=== PATIENT | female | born 1985 | race Caucasian/White ===

== ENCOUNTER 2020-06-25 17:02 | Emergency (ER) | payer OTHER, MEDICAID, SELFPAY ==
[2020-06-25 17:08] VITALS: BP 137/106; PULSE 100; RESP 17; TEMP 36.9; O2SAT 100
--- NOTE | 2020-06-25 17:28 | ED.URI ---
HPI - URI/Sore Throat General Chief Complaint: Upper Respiratory Infection Stated Complaint: wants covid test Time Seen by Provider: 06/25/20 17:15 Source: patient Mode of arrival: ambulatory Limitations: no limitations History of Present Illness HPI Narrative: Patient is a 35-year-old female who presents complaining sore throat, fever, body aches, diarrhea, rhinorrhea, cough and mild shortness of breath x1 day. She denies taking [id number] medications for symptom relief. Unknown if any positive COVID exposure. MD elicited complaint: cough, sore throat and rhinorrhea Related Data Home Medications Medication Instructions Recorded Confirmed divalproex PO 06/25/20 hydroxyzine HCl 06/25/20 olanzapine mg 06/25/20 06/25/20 Allergies Allergy/AdvReac Type Severity Reaction Status Date / Time No Known Allergies Allergy Verified 06/25/20 17:10 Review of Systems Review of Systems: Narrative: CONSTITUTIONAL: Reports feverand chills. EYES: Denies visual changes, redness, or discharge. ENT: Reports rhinorrhea and sore throat. CARDIOVASCULAR: Denies chest pain, palpitations, or edema. RESPIRATORY:Reportss cough and dyspnea. GASTROINTESTINAL: Denies abdominal pain, nausea, vomiting, reports diarrhea. GENITOURINARY: Denies dysuria or hematuria. SKIN: Denies rash or itching. MUSCULOSKELETAL: Denies back pain, joint pain, or myalgia. NEUROLOGIC: Denies headache, numbness, dizziness, or weakness. PSYCHIATRIC: Denies anxiety or depression. [facility] Past Medical History Medical History (Updated 06/25/20 @ 18:03 by KUNAL East) Anxiety Depression Gastric ulcer Opiate abuse, continuous Ureteral stone Surgical History Surgical History H/O laparoscopy History of endometrial ablation Family History Family History Other Family history of coronary artery disease Family history of lung cancer Social History Social History (Updated 06/25/20 @ 17:35 by KUNAL East) Smoking status: Current some day smoker Tobacco type: cigarettes Alcohol intake: never Substance use: unknown Gender identity (if verbalized by the patient): Female Exam Narrative: Exam Narrative: GENERAL: Ill appearing but in no acute distress. HEAD: Normocephalic, atraumatic. EYES: EOMI. No redness or drainage. Conjunctiva are normal. ENT: Mucous membranes pink and moist. Nares clear. Positive rhinorrhea. TMs normal bilaterally. Throat mild erythema. Uvula midline. NECK: AROM. Supple. No lymphadenopathy. CHEST: No respiratory distress. Clear to auscultation. HEART: Regular rate and rhythm. No murmur appreciated. Normal peripheral pulses. GI: Soft, nontender without rebound, or guarding. No distention. Bowel sounds normal in all quadrants. EXTREMITIES: Normal range of motion. No edema. SKIN: Warm, dry, no rash. NEURO: No focal deficits. Alert and oriented x3. Gait steady. PSYCH: Normal affect. No signs of depression or anxiety. Course Vital Signs Vital signs: Vital Signs Temperature 36.9 C 06/25/20 17:08 Pulse Rate 100 06/25/20 17:08 Respiratory Rate 17 06/25/20 17:08 Blood Pressure 137/106 H 06/25/20 17:08 Pulse Oximetry 100 06/25/20 17:08 Temperature 36.9 C 06/25/20 17:08 Pulse Rate 100 06/25/20 17:08 Respiratory Rate 17 06/25/20 17:08 Blood Pressure 137/106 H 06/25/20 17:08 Pulse Oximetry 100 06/25/20 17:08 Reviewed. Patient has been instructed to follow-up with her PCP regarding her blood pressure. MDM - URI/Sore Throat MDM Narrative Medical decision making narrative: Patient negative influenza a and B. Patient will likely COVID. COVID testing commpleted in the ED. Patient refused chest xray and states she would just like to go home and rest at this time. Instructions on self isolation given, patient also instructed to get a pulse oximeter and
--- NOTE | 2020-06-25 18:07 | PC.NURSE ---
COVID SWAB SENT TO LAB AT THIS TIME.
--- NOTE | 2020-06-25 18:29 | PC.NURSE ---
PT REFUSING XRAY, DOCUMENT IMAGE TECHNICIAN INFORMED VERBAL ORDER TO CANCEL.
[2020-06-25 18:44] VITALS: BP 134/78; PULSE 89; RESP 22; O2SAT 97
[2020-06-26 12:19] LABS: SARS-CoV-2 RNA PCR Positive
== END 2020-06-25 18:44 | disposition home or self-care (01) ==
PROVIDERS: Emergency Provider Nurse Practitioner
DX: U07.1 COVID-19 (principal); J06.9 Acute upper respiratory infection, unspecified; F41.9 Anxiety disorder, unspecified; F32.9 Major depressive disorder, single episode, unspecified; Z87.442 Personal history of urinary calculi
CPT/HCPCS: 87635; 87804; 99283; C9803; U0003

== ENCOUNTER 2020-08-02 22:02 | Emergency (ER) | payer OTHER, MEDICAID, SELFPAY ==
[2020-08-02] VITALS (10 sets, daily range): BP systolic 100–118; BP diastolic 46–97; PULSE 81–89; RESP 14–20; TEMP 36.9; O2SAT 98–100
--- NOTE | ~2020-08-02 | XR_ITS ---
EXAMINATION: XR chest 2V DATE: 08/02/2020 23:06 INDICATION: Shortness of breath. Heart fluttering. Bilateral feet swelling. TECHNIQUE: PA and lateral views of the chest were obtained. COMPARISON: Chest radiograph dated 12/14/2008 FINDINGS: The lungs remain clear with no focal airspace opacities, pulmonary edema, pleural effusion or pneumot horax. The cardiomediastinal silhouette is normal. Negligible lower thoracic dextrocurvature. IMPRESSION: 1. No acute cardiopulmonary disease. Reviewed, dictated and finalized at location A. LE AIR VALVE TESTER
--- NOTE | 2020-08-02 22:08 | ED.GENADULT ---
HPI - General Adult General Chief complaint: Unspecified Stated complaint: feet, ankle, and calf swelling Time Seen by Provider: 08/02/20 22:08 Source: patient Mode of arrival: ambulatory Limitations: no limitations History of Present Illness HPI narrative: Patient is a 35-year-old with a history of bipolar disorder, depression and anxiety who presents for evaluation of bilateral lower leg swelling and pain. Patient reports she has had increased leg swelling and pain over the past week. She states she had was diagnosed with Covid over a month ago, also reporting some shortness of breath without chest pain. Patient states she is very stressed, patient is very tearful and emotional throughout the interview. She is constantly. From symptom to symptom, stating she feels as if something is seriously wrong with her. No recent travel. No redness or rashes. Patient reports dull, aching pain in the bilateral lower legs. Patient states she has a hysterectomy, is not on any control. Related Data Home Medications Medication Instructions Recorded Confirmed divalproex PO 06/25/20 hydroxyzine HCl 06/25/20 olanzapine mg 06/25/20 06/25/20 Allergies Allergy/AdvReac Type Severity Reaction Status Date / Time No Known Allergies Allergy Verified 08/02/20 22:05 Review of Systems Review of Systems: Narrative: CONSTITUTIONAL: Denies fever, chills, or sweats. EYES: Denies visual changes, redness, or discharge. ENT: Denies rhinorrhea, congestion, sore throat, or otalgia. CARDIOVASCULAR: Denies chest pain, palpitations, reports lower leg swelling RESPIRATORY: Denies cough, reports shortness of breath. GASTROINTESTINAL: Denies abdominal pain, nausea, vomiting, or diarrhea. GENITOURINARY: Denies dysuria or hematuria. SKIN: Denies rash or itching. MUSCULOSKELETAL: Denies back pain, joint pain, or myalgia. NEUROLOGIC: Denies headache, numbness, or weakness. PSYCHIATRIC: Reports anxiety, depression and bipolar disorder PMFSH Past Medical History Medical History Anxiety Depression Gastric ulcer Opiate abuse, continuous Ureteral stone Surgical History Surgical History H/O laparoscopy History of endometrial ablation Family History Family History Other Family history of coronary artery disease Family history of lung cancer Social History Social History Smoking status: Current some day smoker Tobacco type: cigarettes Alcohol intake: never Substance use: unknown Gender identity (if verbalized by the patient): Female Exam Narrative: Exam Narrative: GENERAL: Awake, alert, anxious, tearful HEAD: Normocephalic, atraumatic. EYES: PERRLA and EOMI. ENT: Nares clear, no rhinorrhea or epistaxis. Mucous membranes moist. NECK: Supple. CHEST: No respiratory distress, breathing even and non labored HEART: Regular rate, sinus rhythm ABDOMEN:Non distended, non tender EXTREMITIES: Normal range of motion. No leg edema. Bilateral calf tenderness on exam. No masses palpated. Compartments are soft. Distal pulses 2+, sensation intact. SKIN: Warm, dry, no rash. NEURO:No focal deficits. Alert and oriented x3 Course Vital Signs Vital signs: Vital Signs Temperature 36.9 C 08/02/20 22:03 Pulse Rate 89 08/02/20 22:03 Respiratory Rate 18 08/02/20 22:03 Blood Pressure 118/46 L 08/02/20 22:03 Pulse Oximetry 100 08/02/20 22:03 Temperature 36.9 C 08/02/20 22:07 Pulse Rate 83 08/02/20 23:30 Respiratory Rate 19 08/02/20 23:30 Blood Pressure 100/86 08/02/20 23:01 Pulse Oximetry 100 08/02/20 23:30 Medical Decision Making MDM Narrative Medical decision making narrative: On exam, I do not really appreciate any edema. There is certainly no pitting edema. No unilateral edema, red
--- NOTE | 2020-08-02 22:31 | ECG_ITS ---
Measurements Intervals [place] Rate: 75 P: 46 OR: 148 QRS: 36 QRSD: 94 T: 21 QT: 400 QTc: 449 Interpretive Statements SINUS RHYTHM NORMAL ECG Electronically Signed On 08-03-2020 8:45:23 CAMPAIGN ASSISTANT by Xavier Jeffery D.O.
[2020-08-02] MEDS: LORazepam (*CRX) 0.5 MG TABLET PO (22:49)
[2020-08-02 22:55] LABS: Basophils Absolute Auto 0.1 K/mm3 (0.0-0.1); Basophils Percent Auto 1.3 % (0.2-1.2); Eosinophils Absolute Auto 0.7 K/mm3 (0-0.3); Hematocrit 38.7 % (37.0-47.0); Hemoglobin 12.5 g/dL (12.0-15.0); Immature Granulocyte Absolute 0.08 K/mm3 (0.00-0.031); Lymphocytes Absolute Auto 2.72 K/mm3 (0.9-3.2); Lymphocytes Percent Auto 32.5 % (18.3-44.2); Mean Corpuscular HGB Conc 32.3 g/dl (32-36); Mean Corpuscular Hemoglobin 28.9 pg (26-34); Mean Corpuscular Volume 89.4 fl (80-100); Mean Platelet Volume 10.5 fl (7.4-10.4); Monocytes Absolute Auto 0.6 K/mm3 (0.1-0.6); Monocytes Percent Auto 7.3 % (2.6-8.5); Neutrophils Absolute Auto 4.2 K/mm3 (1.3-6.7); Neutrophils Percent Auto 49.9 % (45.5-73.1); Platelet Count Result 209 k/mm3 (150-375); Red Blood Count 4.33 M/mm3 (4.2-5.4); Red Cell Distribution Width 14.6 % (11.5-14.5); White Blood Count 8.4 K/mm3 (4.5-10.0)
[2020-08-02 23:05] LABS: Alanine Aminotransferase 29 U/L (4-35); Albumin Level 4.2 g/dL (3.5-5.1); Alkaline Phosphatase 60 U/L (38-126); Anion Gap 8 mmol/L (8-16); Aspartate Amino Transferase 30 U/L (14-36); Bilirubin,Total 0.3 mg/dL (0.2-1.3); Blood Urea Nitrogen 24 mg/dL (7-17); Calcium 8.8 mg/dL (8.4-10.2); Carbon Dioxide 31 mmol/L (22-30); Chloride 101 mmol/L (98-107); Estimated CRCL calculation 85 ml/min; Estimated Glomerular Filt Rate > 60; Glucose 84 mg/dL (65-105); Potassium 4.2 mmol/L (3.4-5.0); Sodium 140 mmol/L (137-145)
[2020-08-02 23:08] LABS: D Dimer 0.27 ug/mL (<0.48)
[2020-08-02 23:14] LABS: NT Pro B Type Natriuretic Pept 93 PG/ML (5-100)
--- NOTE | 2020-08-02 23:41 | PC.NURSE ---
pt resting on stretcher, playing on her phone. pt states ativan did help. RN informed that she is awaiting results and once received the md should be back in.
[2020-08-03 00:03] VITALS: BP 115/58; PULSE 89; RESP 18; TEMP 36.4; O2SAT 100
== END 2020-08-03 00:04 | disposition home or self-care (01) ==
PROVIDERS: Emergency Provider Emergency Medicine
DX: F41.9 Anxiety disorder, unspecified (principal); M79.89 Other specified soft tissue disorders; F31.9 Bipolar disorder, unspecified; F17.210 Nicotine dependence, cigarettes, uncomplicated; Z86.19 Personal history of other infectious and parasitic diseases
CPT/HCPCS: 36415; 71046; 80053; 83880; 85025; 85380; 93005; 99283; A9270

== ENCOUNTER 2020-08-03 12:11 | Outpatient (CLI) | payer MEDICAID, SELFPAY ==
--- NOTE | ~2020-08-03 | US_ITS ---
EXAMINATION: US venous doppler [facility] DATE: 08/03/2020 12:54 INDICATION: Lower limb swelling. TECHNIQUE: Grayscale ultrasound images without and with compression and Doppler ultrasound images of the bilateral lower extremity veins were obtained. COMPARISON: Ultrasound 05/12/2016 FINDINGS: The visualized portions of right common femoral vein, profunda (deep) femoral vein, femoral vein, pop liteal vein, peroneal veins, posterior tibial veins, and greater saphenous vein outflow are patent. The visualized portions of left common femoral vein, profunda femoral vein, femoral vein, popliteal v ein, peroneal veins, posterior tibial veins, and greater saphenous vein outflow are patent. IMPRESSION: 1. No deep venous thrombosis. Reviewed, dictated and finalized at location B. ICAL DRESSING MAKER
== END 2020-08-03 12:12 | disposition home or self-care (01) ==
LOC: ANHIMG 12:17
PROVIDERS: PCP Internal Medicine; Visit Provider Internal Medicine
DX: M79.89 Other specified soft tissue disorders (principal)
CPT/HCPCS: 93970

== ENCOUNTER 2020-08-18 19:14 | Emergency (ER) | payer MEDICAID, SELFPAY ==
[2020-08-18 19:34] VITALS: BP 135/74; PULSE 89; RESP 20; TEMP 36.9; O2SAT 99
[2020-08-18 19:50] VITALS: BP 141/88; PULSE 82; RESP 19; O2SAT 99
--- NOTE | 2020-08-18 20:28 | ED.EXTPRO ---
HPI - Extremity Problem General Chief complaint: Extremity Problem,Nontraumatic Stated complaint: swelling-arms, legs, face-difficulty breathing Time Seen by Provider: 08/18/20 20:09 History of Present Illness HPI Narrative: Bilateral foot and ankle edema for a few weeks. Associated with pain in the feet and dyspnea. Seen here and by her PCP recently for the same, and has a follow-up appointment tomorrow. She has had negative dopplers and was prescribed compression stocking. Related Data Home Medications Medication Instructions Recorded Confirmed divalproex 500 mg PO BID 06/25/20 hydroxyzine HCl 50 mg PO TID PRN 06/25/20 olanzapine 10 mg PO HS 06/25/20 06/25/20 Allergies Allergy/AdvReac Type Severity Reaction Status Date / Time No Known Allergies Allergy Verified 08/18/20 20:55 Review of Systems Review of Systems: All systems reviewed & are unremarkable except as noted in HPI and below Constitutional: Constitutional: Denies chills and Denies fever(s) Cardiovascular: Cardiovascular: Denies chest pain Respiratory: Respiratory: Reports dyspnea PMFSH Past Medical History Medical History Anxiety Depression Gastric ulcer Opiate abuse, continuous Ureteral stone Surgical History Surgical History H/O laparoscopy History of endometrial ablation Family History Family History Other Family history of coronary artery disease Family history of lung cancer Social History Social History Smoking status: Current some day smoker Tobacco type: cigarettes Alcohol intake: never Substance use: unknown Gender identity (if verbalized by the patient): Female Exam Const: General: no acute distress and alert Orientation/consciousness: patient oriented x3 HENMT: Head: normal to inspection Neck: Neck: normal visual inspection Resp: Effort & Inspection: normal respiratory effort Auscultation: clear to auscultation bilaterally Cardio: Rate: regular rate Rhythm: regular rhythm GI: GI Palp: Yes Soft to palpation and No Tenderness to palpation present (GI) Skin: General skin exam: normal color Neuro: General: patient oriented x3 and moves all extremities Speech: normal speech Gait exam (Neuro): Normal gait present Extrem: General: edema (1+ bilateral ankle edema) Psych: Affect: Anxious affect present Course Vital Signs Vital signs: Vital Signs Temperature 36.9 C 08/18/20 19:34 Pulse Rate 89 08/18/20 19:34 Respiratory Rate 20 08/18/20 19:34 Blood Pressure 135/74 08/18/20 19:34 Pulse Oximetry 99 08/18/20 19:34 Temperature 36.9 C 08/18/20 19:34 Pulse Rate 80 08/18/20 20:45 Respiratory Rate 15 08/18/20 20:45 Blood Pressure 138/85 08/18/20 20:45 Pulse Oximetry 97 08/18/20 20:45 MDM - Extremity (Nontraumatic) MDM Narrative Medical decision making narrative: She does have moderate edema. Normal kidney function. I will provide for a short course of diuresis. Discharge Plan Discharge Clinical Impression: Dependent edema Patient Disposition: Home, Self-Care Condition: Stable Instructions: Leg Edema (ED) Prescriptions: New furosemide [Lasix] 20 mg tablet 20 mg PO DAILY Qty: 7 RF: 0 No Action olanzapine 10 mg tablet 10 mg PO HS RF: 0 hydroxyzine HCl 50 mg tablet 50 mg PO TID PRN (Reason: Anxiety) RF: 0 divalproex 500 mg tablet,delayed release (DR/EC) 500 mg PO BID RF: 0 Follow-up/Referrals: Seb Ugarte MD [Primary Care Provider] -
[2020-08-18 20:45] VITALS: BP 138/85; PULSE 80; RESP 15; O2SAT 97
[2020-08-18] MEDS: FUROSEMIDE 20 MG TABLET PO (20:53)
== END 2020-08-18 21:10 | disposition home or self-care (01) ==
PROVIDERS: Emergency Provider Emergency Medicine; PCP Internal Medicine
DX: R60.9 Edema, unspecified (principal); F41.9 Anxiety disorder, unspecified; F32.9 Major depressive disorder, single episode, unspecified; F17.210 Nicotine dependence, cigarettes, uncomplicated
CPT/HCPCS: 99283; A9270

== ENCOUNTER 2020-09-03 13:56 | Outpatient (CLI) | payer BC, SELFPAY ==
--- NOTE | 2020-09-03 | ECHO_ITS ---
Patient Info Name: Lizzeth Terrazas Age: 35 years : 1985 Gender: Female Ht: 67 in Wt: 180 lbs BSA: 1.98 m2 HR: 88 bpm BP: 143 / 79 mmHg Heart Rhythm: Sinus Rhythm Technical Quality: Good Exam Date: 09/03/2020 2:27 PM Exam Location: [facility] Patient Status: Outpatient Admit Date: 09/03/2020 Staff Ordering Physician: Seb Ugarte MD Welder Experimental: Martita Ellis RDCS Attending Provider: Seb Ugarte MD Referring Physician: Torito THOMPSON; Exam Type: CA echo doppler color flow Study Info Indications R60.9 - Edema, unspecified Complete two-dimensional, color flow and Doppler transthoracic echocardiogram is performed. Summary 1. Complete two-dimensional, color flow and Doppler transthoracic echocardiogram is performed. 2. Left ventricular chamber dimension is normal. 3. Left ventricular systolic function is normal, estimated at 65-70%. 4. The left ventricular diastolic function is normal. 5. E/e' 8 is minimally elevated. 6. Global longitudinal strain is normal at -27.1%. 7. There is trace tricuspid valve regurgitation. 8. Mild pulmonary hypertension, estimated pulmonary arterial systolic pressure is 47 mmHg. 9. Dilated inferior vena cava with <50% collapse upon inspiration consistent with significantly elevated right atrial pressure, 15 mmHg. Left Ventricle E/e' 8 is minimally elevated. Global longitudinal strain is normal at -27.1%. Left ventricular chamber dimension is normal. Left ventricular systolic function is normal, estimated at 65-70%. The left ventricular diastolic function is normal. Right Ventricle Right ventricular chamber dimension is normal. Right ventricular systolic function is normal. Left Atria Left atrial chamber dimension is normal. Right Atria Right atrial chamber dimension is normal. Aortic Valve The aortic valve is trileaflet. There is no aortic valve stenosis. There is no aortic valve regurgitation. Pulmonic Valve There is no pulmonic regurgitation. Mitral Valve There is no mitral valve stenosis. There is no mitral valve regurgitation. Tricuspid Valve There is trace tricuspid valve regurgitation. Mild pulmonary hypertension, estimated pulmonary arterial systolic pressure is 47 mmHg. Pericardium/Pleural There is no pericardial effusion. Inferior Vena Cava Dilated inferior vena cava with <50% collapse upon inspiration consistent with significantly elevated right atrial pressure, 15 mmHg. Aorta The aortic root size at the sinus of Valsalva is normal. Left Ventricular Outflow Tract Name Value Normal LVOT 2D LVOT Diameter 2.0 cm LVOT Doppler LVOT Peak Gradient 8 mmHg LVOT Mean Gradient 4 mmHg LVOT VTI 30 cm LVOT VTI/AV VTI Ratio 1.0 LVOT Stroke Volume 89 ml LVOT CO 8.0 l/min LVOT CI 4.0 l/min/m2 Mitral Valve Name
== END 2020-09-03 13:57 | disposition home or self-care (01) ==
PROVIDERS: PCP Internal Medicine; Visit Provider Internal Medicine
DX: M79.89 Other specified soft tissue disorders (principal); I27.0 Primary pulmonary hypertension
CPT/HCPCS: 93306

== ENCOUNTER 2020-09-05 08:45 | Outpatient (CLI) | payer BC, SELFPAY ==
--- NOTE | ~2020-09-05 | XR_ITS ---
EXAMINATION: XR chest 2V DATE: 09/05/2020 09:16 INDICATION: Lower limb swelling TECHNIQUE: Frontal and lateral views of the chest are obtained COMPARISON: 08/02/2020 FINDINGS: The lungs are free of acute opacities. There is no pleural effusion or pneumothorax. The ca rdiomediastinal silhouette is normal. The visualized bones and soft tissues are unremarkable. IMPRESSION: 1. No acute cardiopulmonary abnormality. Reviewed, dictated and finalized at location A. Y EQUIPMENT OPERATOR
== END 2020-09-05 08:46 | disposition home or self-care (01) ==
LOC: ANHIMG 08:55
PROVIDERS: PCP Internal Medicine; Visit Provider Nurse Practitioner
DX: M79.89 Other specified soft tissue disorders (principal)
CPT/HCPCS: 71046

== ENCOUNTER 2020-09-29 22:44 | Emergency (ER) | payer BC, SELFPAY ==
[2020-09-29 22:46] VITALS: BP 130/101; PULSE 101; RESP 16; TEMP 36.3; O2SAT 100
--- NOTE | 2020-09-29 23:14 | ED.GENADULT ---
HPI - General Adult General Chief complaint: Unspecified Stated complaint: feet swelling, SI Time Seen by Provider: 09/29/20 22:54 Source: patient Mode of arrival: ambulatory Limitations: no limitations History of Present Illness HPI narrative: Patient is a 34-year-old female complaining of bilateral lower extremity edema which she states started approximately 1 month ago when she was taken off her water pill. Patient states that she was on Depakote which was causing her lower extremity to swell up was taken off of it a month ago along with a water pill but the past 2 weeks she is noticing the swelling of her bilateral lower extremity. Patient states that she had an argument with her mother and that is why she said I wish I was but states that she said jest and did not mean that she was just mad at her mother at that time. Patient adamantly denies having suicidal or homicidal thoughts. Patient denies any thoughts of hurting herself, why would I want to do that I have 2 kids that stupid . Again when asked patient is very adamant that she has no thoughts of hurting herself or anyone else. Related Data Home Medications Medication Instructions Recorded Confirmed hydroxyzine HCl 50 mg PO TID PRN 06/25/20 olanzapine 10 mg PO HS 06/25/20 06/25/20 fluoxetine mg 09/29/20 09/29/20 topiramate 09/29/20 Allergies Allergy/AdvReac Type Severity Reaction Status Date / Time divalproex sodium Allergy Unknown Verified 09/29/20 22:54 [From Depakote] Review of Systems Review of Systems: All systems reviewed & are unremarkable except as noted in HPI and below Constitutional: Constitutional: Denies body ache(s), Denies chills, Denies excessive sweating, Denies fatigue, Denies fever(s), Denies headache(s), Denies lethargy, Denies malaise, Denies weakness and Denies weight loss Eyes: Eyes: Denies blurry vision, Denies change in vision and Denies loss of vision ENT: Denies dizziness, Denies ear discharge, Denies headache(s), Denies lip swelling, Denies epistaxis, Denies nasal congestion, Denies neck pain, Denies throat swelling and Denies tongue swelling Cardiovascular: Cardiovascular: Denies chest pain, Denies chest pain at rest, Denies chest pain with activity, Denies diaphoresis, Denies rapid heart rate, Denies edema, Denies irregular heart rhythm, Denies lightheadedness, Denies palpitations, Denies dyspnea and Denies dyspnea on exertion Respiratory: Respiratory: Denies chest congestion, Denies cough, Denies hemoptysis, Denies dyspnea and Denies dyspnea on exertion Gastrointestinal: Gastrointestinal: Denies abdominal pain, Denies melena, Denies hematochezia, Denies diarrhea, Denies nausea, Denies vomiting and Denies hematemesis Musculoskeletal: Musculoskeletal: Denies abnormal gait, Denies deformity, Denies joint swelling, Denies limited range of motion, Denies neck pain and Denies numbness Neurologic: Denies Abnormal speech present, Denies abnormal gait, Denies confusion, Denies dizziness, Denies headache(s), Denies focal weakness, Denies loss of vision, Denies numbness, Denies Other visual disturbances, Denies Sensory deficit (Neuro) and Denies weakness Psychiatric: Psychiatric: Denies confusion, Denies depression, Denies auditory hallucinations, Denies homicidal ideation and Denies suicidal ideation Endocrine: Endocrine: Denies cold intolerance, Denies excessive sweating, Denies fatigue, Denies heat intolerance and Denies palpitations Hematologic/Lymphatic: Hematologic/Lymphatic: Denies easy bleeding and Denies easy bruising Allergic/Immunologic: Allergic/Immunologic: Denies lip swelling, Denies throat swelling and Denies tongue swelling PMFSH Past Medical History Medical History Anxiety Depression Gastric ulcer Opiate abuse, continuous Ureteral stone Surgical History Surgical History H/O laparoscopy History o
[2020-09-29 23:24] VITALS: RESP 18
[2020-09-29 23:43] LABS: Basophils Absolute Auto 0.1 K/mm3 (0.0-0.1); Basophils Percent Auto 1.1 % (0.2-1.2); Eosinophils Absolute Auto 0.5 K/mm3 (0-0.3); Eosinophils Percent Auto 6.8 % (0-4.4); Hematocrit 37.5 % (37.0-47.0); Hemoglobin 12.2 g/dL (12.0-15.0); Immature Granulocyte Absolute 0.02 K/mm3 (0.00-0.031); Immature Granulocyte Percent A 0.3 % (0-0.5); Lymphocytes Percent Auto 38.7 % (18.3-44.2); Mean Corpuscular HGB Conc 32.5 g/dl (32-36); Mean Corpuscular Hemoglobin 28.3 pg (26-34); Mean Platelet Volume 10.6 fl (7.4-10.4); Monocytes Absolute Auto 0.6 K/mm3 (0.1-0.6); Monocytes Percent Auto 8.5 % (2.6-8.5); Neutrophils Absolute Auto 3.4 K/mm3 (1.3-6.7); Neutrophils Percent Auto 44.6 % (45.5-73.1); Platelet Count Result 240 k/mm3 (150-375); Red Blood Count 4.31 M/mm3 (4.2-5.4); Red Cell Distribution Width 14.2 % (11.5-14.5); White Blood Count 7.5 K/mm3 (4.5-10.0)
[2020-09-29 23:52] LABS: Acetaminophen < 10 ug/mL (10-30); Salicylate 8.4 mg/dL (2-20)
[2020-09-29 23:58] LABS: Alanine Aminotransferase 21 U/L (4-35); Albumin Level 3.8 g/dL (3.5-5.1); Alkaline Phosphatase 72 U/L (38-126); Anion Gap 4 mmol/L (8-16); Aspartate Amino Transferase 35 U/L (14-36); Bilirubin,Total 0.2 mg/dL (0.2-1.3); Blood Urea Nitrogen 15 mg/dL (7-17); Calcium 8.7 mg/dL (8.4-10.2); Carbon Dioxide 27 mmol/L (22-30); Chloride 107 mmol/L (98-107); Estimated CRCL calculation 88 ml/min; Estimated Glomerular Filt Rate > 60; Glucose 101 mg/dL (65-105); Potassium 3.7 mmol/L (3.4-5.0); Sodium 138 mmol/L (137-145)
[2020-09-30 00:07] LABS: Barbiturate Screen Urine Negative (Negative); Benzodiazepines Screen Urine Positive (Negative); Cannabinoid Screen Urine Positive (Negative); Cocaine Screen Urine Negative (Negative); Methadone Screen Urine Negative (Negative); Opiate Screen Urine Negative (Negative); Phencyclidine Screen Urine Negative (Negative)
[2020-09-30 00:10] LABS: Ethanol < 10 mg/dL (<10)
[2020-09-30 00:22] LABS: Amphetamine Screen Urine Positive (Negative)
[2020-09-30 00:28] LABS: Thyroid Stimulating Hormone 0.492 uIU/mL (0.465-4.680)
[2020-09-30 02:50] VITALS: BP 129/83; PULSE 84; RESP 18; O2SAT 97
== END 2020-09-30 02:50 | disposition home or self-care (01) ==
PROVIDERS: Emergency Provider Emergency Medicine; PCP Internal Medicine
DX: F43.25 Adjustment disorder with mixed disturbance of emotions and conduct (principal); F41.9 Anxiety disorder, unspecified; F32.9 Major depressive disorder, single episode, unspecified
CPT/HCPCS: 36415; 80053; 80307; 84443; 85025; 99284

== ENCOUNTER 2021-04-11 13:29 | Emergency (ER) | payer BC, SELFPAY ==
--- NOTE | ~2021-04-11 | XR_ITS ---
EXAMINATION: XR ankle LT min 3V DATE: 04/11/2021 13:56 INDICATION: Left ankle pain TECHNIQUE: Anteroposterior, lateral, mortise, and additional oblique view of the ankle were obtained. COMPARISON: None. FINDINGS: There is soft tissue swelling of ankle. Bone alignment is normal. No fracture is identified . IMPRESSION: 1. Soft tissue swelling without acute osseous findings Reviewed, dictated and finalized at location A.
--- NOTE | ~2021-04-11 | XR_ITS ---
EXAMINATION: XR foot RT min 3V DATE: 04/11/2021 13:56 INDICATION: Right foot pain TECHNIQUE: Dorsoplantar, lateral, and 2 oblique views of the right foot were obtained. COMPARISON: 07/09/2011 FINDINGS: There is no fracture, dislocation, or subluxation. The bones, soft tissues, and joint space s are normal. IMPRESSION: 1. No acute osseous abnormality. Reviewed, dictated and finalized at location A.
[2021-04-11 13:30] VITALS: BP 115/66; PULSE 77; RESP 20; TEMP 36.8; O2SAT 99
--- NOTE | 2021-04-11 14:33 | ED.GENADULT ---
HPI - General Adult General Chief complaint: Extremity Injury, Lower Stated complaint: something wrong with my feet Time Seen by Provider: 04/11/21 13:44 Source: patient and RN notes reviewed Mode of arrival: ambulatory Limitations: no limitations History of Present Illness HPI narrative: Patient is a 36-year-old female who presents with bilateral foot pain patient has a history of lower extremity edema patient on arrival to emergency department is in the room in no distress notes that in the last week she stepped on a rock and injured the right midfoot is continued to have some mild aching pain patient on arrival does not appear distressed she also notes she continues to have mild ankle pain to the left side medial aspect history of rolling the ankle patient denies other injuries or complaints 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 which has made it difficult for her is followed by primary care for this on arrival does not appear distressed Related Data Home Medications Medication Instructions Recorded Confirmed hydroxyzine HCl 50 mg PO TID PRN 06/25/20 olanzapine 10 mg PO HS 06/25/20 06/25/20 fluoxetine mg 09/29/20 09/29/20 topiramate 09/29/20 Allergies Allergy/AdvReac Type Severity Reaction Status Date / Time divalproex sodium Allergy Unknown Verified 09/29/20 22:54 [From Depakote] Review of Systems Review of Systems: All systems reviewed & are unremarkable except as noted in HPI and below PMFSH Past Medical History Medical History Anxiety Depression Gastric ulcer Opiate abuse, continuous Ureteral stone Surgical History Surgical History H/O laparoscopy History of endometrial ablation Family History Family History Other Family history of coronary artery disease Family history of lung cancer Social History Social History Smoking status: Current some day smoker Tobacco type: cigarettes Alcohol intake: never Substance use: unknown Gender identity (if verbalized by the patient): Female Exam Narrative: Exam Narrative: GENERAL: Well-appearing, well-nourished, and in no acute distress. HEAD: Normocephalic, atraumatic. EYES: PERRLA and EOMI. ENT: Nares clear, no rhinorrhea or epistaxis. Mucous membranes moist. CHEST: Clear to auscultation. No respiratory distress. No wheezes rales or rhonchi HEART: Regular rate and rhythm. No murmur heard. EXTREMITIES: Normal range of motion. No edema. Tenderness of the medial aspect of the left ankle no deformity remainder of extremity nontender. Tender some of the dorsum of the right midfoot no deformity noted SKIN: Warm, dry, no rash. NEURO: No focal deficits. Alert and oriented x3. Neurovascularly intact. Capillary refill less than 2 seconds PSYCH: Normal mood and affect. Course Course Emergency Course: Patient evaluated the emergency department no distress will be discharged with podiatry follow-up and primary care felt appropriate for outpatient reevaluation patient is agreeing with this plan she is afebrile nontoxic-appearing no distress provided with reasons to return is felt appropriate for outpatient reevaluation Vital Signs Vital signs: Vital Signs Temperature 98.2 F 04/11/21 13:30 Pulse Rate 77 04/11/21 13:30 Respiratory Rate 20 04/11/21 13:30 Blood Pressure 115/66 04/11/21 13:30 Pulse Oximetry 99 04/11/21 13:30 Temperature 98.2 F 04/11/21 13:30 Pulse Rate 77 04/11/21 13:30 Respiratory Rate 20 04/11/21 13:30 Blood Pressure 115/66 04/11/21 13:30 Pulse Oximetry 99 04/11/21 13:30 Medical Decision Making MDM Narrative Medical decision making narrative: Patients injury or pain is consistent with musculoskeletal etiology. No signs of neurological or vascular compromise on exam
[2021-04-11 15:07] VITALS: BP 136/90; PULSE 74; RESP 16; O2SAT 98
== END 2021-04-11 15:10 | disposition home or self-care (01) ==
PROVIDERS: Emergency Provider Emergency Medicine; PCP Internal Medicine
DX: S93.409A Sprain of unspecified ligament of unspecified ankle, initial encounter (principal); S96.919A Strain of unspecified muscle and tendon at ankle and foot level, unspecified foot, initial encounter; M79.671 Pain in right foot; F41.9 Anxiety disorder, unspecified; F32.9 Major depressive disorder, single episode, unspecified; Z87.442 Personal history of urinary calculi; F17.210 Nicotine dependence, cigarettes, uncomplicated; X50.9XXA Other and unspecified overexertion or strenuous movements or postures, initial encounter
CPT/HCPCS: 73610; 73630; 99284

== ENCOUNTER 2022-02-24 08:45 | Emergency (ER) | payer BC, SELFPAY ==
[2022-02-24 08:52] VITALS: BP 133/78; PULSE 81; RESP 18; TEMP 36.4; O2SAT 100
[2022-02-24 09:05] VITALS: RESP 20
--- NOTE | 2022-02-24 09:09 | ED.GENADULT ---
HPI - General Adult General Chief complaint: Unspecified Stated complaint: twitching after ingesting an edible Time Seen by Provider: 02/24/22 08:52 History of Present Illness HPI narrative: 36-year-old female with a history of bipolar presents to the emergency room via EMS stating her mother requested an evaluation for high heart rate. Patient states that she has been experiencing intermittent tachycardia for 3 to 4 months, and has made her psychiatrist aware and was told to just monitor her . Patient states that she has not been taking her Zyprexa for 2 months, and is also been taking gas station kratom for the length of time. Patient denies any chest pain, palpitations, shortness of breath, difficulty breathing, lower extremity weakness. Patient denies any homicidal or suicidal ideation. Related Data Home Medications Medication Instructions Recorded Confirmed hydroxyzine HCl 50 mg tablet 50 mg PO TID PRN Anxiety 06/25/20 olanzapine 10 mg tablet 10 mg PO HS 06/25/20 06/25/20 fluoxetine 10 mg capsule mg 09/29/20 09/29/20 topiramate 50 mg tablet 09/29/20 Allergies Allergy/AdvReac Type Severity Reaction Status Date / Time divalproex sodium Allergy Unknown Verified 09/29/20 22:54 [From [facility]] Review of Systems Review of Systems: CONSTITUTIONAL: Denies fever, chills, or sweats. EYES: Denies visual changes, redness, or discharge. ENT: Denies rhinorrhea, congestion, sore throat, or otalgia. CARDIOVASCULAR: Denies chest pain, palpitations, or edema. RESPIRATORY: Denies cough or dyspnea. GASTROINTESTINAL: Denies abdominal pain, nausea, vomiting, or diarrhea. GENITOURINARY: Denies dysuria or hematuria. SKIN: Denies rash or itching. MUSCULOSKELETAL: Denies back pain, joint pain, or myalgia. NEUROLOGIC: Denies headache, numbness, dizziness, or weakness. PSYCHIATRIC: Denies anxiety or depression. [facility] Past Medical History Medical History Anxiety Depression Gastric ulcer Opiate abuse, continuous Ureteral stone Surgical History Surgical History H/O laparoscopy History of endometrial ablation Family History Family History Other Family history of coronary artery disease Family history of lung cancer Social History Social History Smoking status: Current some day smoker Tobacco type: cigarettes Alcohol intake: never Substance use: unknown Gender identity (if verbalized by the patient): Female Exam Narrative: GENERAL: Well-appearing, well-nourished, and in no acute distress. HEAD: Normocephalic, atraumatic. EYES: PERRLA and EOMI. CHEST: Clear to auscultation. No respiratory distress. No wheezes rales or rhonchi HEART: Regular rate and rhythm. No murmur heard. Normal peripheral pulses. ABDOMEN: Soft, nontender, nondistended, normal active bowel sounds. EXTREMITIES: Normal range of motion. No edema. SKIN: Warm, dry, no rash. NEURO: No focal deficits. Alert and oriented x3. Cranial nerves II through XII are intact PSYCH: Anxious and restless Course Vital Signs Vital signs: Vital Signs Temperature 36.4 C L 02/24/22 08:52 Pulse Rate 81 02/24/22 08:52 Respiratory Rate 18 02/24/22 08:52 Blood Pressure 133/78 02/24/22 08:52 Pulse Oximetry 100 02/24/22 08:52 Oxygen Delivery Room Air 02/24/22 08:52 Temperature 36.4 C L 02/24/22 08:52 Pulse Rate 81 02/24/22 08:52 Respiratory Rate 20 02/24/22 09:05 Blood Pressure 133/78 02/24/22 08:52 Pulse Oximetry 100 02/24/22 08:52 Oxygen Delivery Room Air 02/24/22 08:52 Medical Decision Making MDM Narrative Medical decision making narrative: 36-year-old female presented to the emergency room with symptoms consistent with an underlying psychiatric disorder, most likely bipolar. Heather
--- NOTE | 2022-02-24 09:12 | PC.NURSE ---
Poison controlled called. They recommend getting an EKG, tylenol, and aspirin level. supportive care. benzos as needed.
--- NOTE | 2022-02-24 09:14 | ECG_ITS ---
Measurements Intervals [place] Rate: 91 P: 53 NC: 167 QRS: 14 QRSD: 90 T: 16 QT: 365 QTc: 449 Interpretive Statements SINUS RHYTHM POSSIBLE LEFT ATRIAL ENLARGEMENT [-0.1mV P WAVE IN V1/V2] BORDERLINE ECG COMPARED TO ECG 08/02/2020 22:47:41 NO SIGNIFICANT CHANGES Electronically Signed On 02-24-2022 17:46:14 CDT by Ash Ascencio M.D.
[2022-02-24 09:48] LABS: Appearance Urine Slightly Cloudy (Clear); Bilirubin Urine 2+ (Negative); Blood Urine Negative (Negative); Glucose Urine UA Negative (Negative); Ketones Urine Trace mg/dL (Negative); Leukocyte Esterase Ur Negative LEU/UL (Negative); Nitrate Urine Negative (Negative); Protein Urine 1+ mg/dL (Negative); Specific Grav Ur >= 1.030 (1.001-1.035); pH Urine 5.5 (5.0-9.0)
[2022-02-24 09:53] LABS: Acetaminophen < 10 ug/mL (10-30); Ethanol < 10 mg/dL (<10)
[2022-02-24 10:03] LABS: Barbiturate Screen Urine Negative (Negative); Benzodiazepines Screen Urine Negative (Negative); Mucus Urine Heavy /lpf; RBC Urine 21-50 /hpf (0-2); Squamous Epithelial Cell Urine Many /hpf (Few)
[2022-02-24 10:13] LABS: Add Urine Microscopic? YES; Color Urine Dark Yellow (Yellow)
[2022-02-24 10:26] LABS: Cannabinoid Screen Urine Positive (Negative); Cocaine Screen Urine Negative (Negative); Methadone Screen Urine Negative (Negative); Opiate Screen Urine Negative (Negative); Phencyclidine Screen Urine Negative (Negative)
[2022-02-24 10:40] VITALS: BP 132/74; PULSE 80; RESP 18; O2SAT 100
== END 2022-02-24 10:41 | disposition home or self-care (01) ==
PROVIDERS: Emergency Provider Nurse Practitioner Family; PCP Internal Medicine
DX: F41.9 Anxiety disorder, unspecified (principal); N39.0 Urinary tract infection, site not specified; F32.A Depression, unspecified; Z87.442 Personal history of urinary calculi; T43.596A Underdosing of other antipsychotics and neuroleptics, initial encounter; Z91.14 Patient's other noncompliance with medication regimen; F17.210 Nicotine dependence, cigarettes, uncomplicated; R94.31 Abnormal electrocardiogram [ECG] [EKG]
CPT/HCPCS: 36415; 80307; 81001; 87086; 87088; 93005; 99283